=== PATIENT | male | born 1950 | race Asian ===

== ENCOUNTER 2016-06-30 05:17 | Inpatient (IN) | payer OTHER ==
--- NOTE | 2016-06-28 22:18 | PREOPHP ---
DATE OF ADMISSION: 06/30/2016 The patient to have surgery with Dr. Frank Duncan on 06/30/2016. REASON FOR CONSULTATION: Consultation requested by Dr. Frank Duncan for medical evaluation and clearance of a 66-year-old gentleman about to undergo surgery on his cervical spine. Thank you, Dr. Duncan, for allowing us to participate in the care of this patient. HISTORY OF PRESENT ILLNESS: Connor Rubalcava is a 66-year-old gentleman with problems with his neck and currently being admitted for correction of the above. PAST MEDICAL HISTORY: In terms of his prior medical history, his only surgery has been for a right inguinal hernia. Otherwise he has not had any hospitalizations nor has he had any medical or other surgical procedures and has had no broken bones. HE CLAIMS NOT TO BE ALLERGIC TO ANY MEDICATIONS. 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 Prednisone 5 mg b.i.d. or a total of 10 mg a day. 2. Os-Jake b.i.d. with vitamin D. 3. Protonix 40 mg a day. 4. Advair 2 puffs b.i.d. 5. Spiriva 18 mcg a day. 6. Qvar 80 mg 2 puffs b.i.d. 7. Gabapentin 600 mg t.i.d. ALLERGIES: HE IS NOT ALLERGIC TO ANY MEDICATIONS. He describes his health, despite all these issues, as being relatively good. SOCIAL HISTORY: Patient is , has 2 children and 1 grandchild. Quit smoking a while back, but did have 20 pack years in before he quit. Alcohol socially. Does drink coffee. 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 FAMILY HISTORY: Both parents are . Father of an [place] at age 62. Mother age 92 of old age. Four siblings are in good health. One has anemia. There is heart disease. No diabetes, cancer, hypertension, or stroke. REVIEW OF SYSTEMS: HEENT: Unremarkable. CARDIORESPIRATORY: Denies any chest pain, shortness of breath. GASTROINTESTINAL: No melena or hematemesis. GENITOURINARY: No urgency, frequency. MUSCULOSKELETAL: Positive for neck problems. NEUROPSYCHIATRIC: Unremarkable. GENERAL HEALTH: As above. PHYSICAL EXAMINATION: VITAL SIGNS: The patient's blood pressure was 134/68, pulse was 92 and regular , respirations 18, temperature 98.4. Height 5 feet 8 inches, weight 135 pounds. GENERAL: The patient was noted to be a well-developed, well-nourished male, alert and cooperative, in no apparent acute distress, oriented to time, place, and person. HEAD, EARS, EYES, NOSE, AND THROAT: Head was atraumatic. Eyes: Pupils were equal, reactive to light and accommodation. Fundi were benign. Tympanic membranes were unremarkable. Nose was negative. Mouth was unremarkable. Fair oral hygiene was present. NECK: Supple without any rigidity. Trachea was midline. Thyroid was within normal limits. Neck veins were flat. Carotid pulses were equal. No bruits were heard. BACK: Unremarkable. CHEST: Symmetrical. BREASTS AND AXILLARY: Did not reveal any masses. LUNGS: Reveal few scattered rhonchi, otherwise unremarkable. HEART: PMI was at the fifth intercostal space at the midclavicular line. Regular sinus rhythm was noted. No significant murmurs, rubs, or gallops being elicited. ABDOMEN: Soft, good bowel sounds were noted. No significant organomegaly, masses, or tenderness. Scars from prior surgery being noted. GENITALIA: Normal male external genitalia. RECTAL AND PROSTATIC: Per PCP, unremarkable. EXTREMITIES: Did not reveal clubbing, edema, or cyanosis. Peripheral pulses were physiologic; however, there was marked weakness in both lower extremities and the patient had definite gait and balance issues. SKIN: Moist and warm without any eruptions. No gross lymphadenopathy was noted. HEART: Revealed normal deep tendon reflexes, however, muscle weakness in lower extremities as well as the upper extremity, right more than left, with the patient's home agent being significantly weakened. IMPRESSION: 1. Spinal stenosis, cervical spine, with acute herniated disk as well as secondary neurologic deficits. 2. 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 3. Respiratory difficulty secondary to that, chronic and other autoimmune disorders. 4. Steroid dependence. 5. Asthmatic bronchitis secondary to eosinophilic pneumonia and autoimmune disease in general. DISCUSSION: Dr. Duncan: This patient currently is in need of relatively emergent cervical spine surgery. Hopefully, he is at his best in terms of his other medical issues at this particular point in time. He is steroid dependent and this will have to be taken into account with preoperative, intraoperative, and postoperative steroid medications in the patient who is adrenally suppressed at this particular point in time. The steroids are for his eosinophilic pneumonia. His obvious muscle weakness in a patient who was a dentist practicing pretty much up until 2 or 3 months ago, makes his issues quite impressive. In terms of his laboratory data, his electrolytes, glucose, BUN, creatinine, liver function tests are basically normal. Serum iron is somewhat low. TSH was normal. Hemoglobin A1c was normal. White count is markedly elevated secondary to chronic steroid use, white count of 23,000, low lymphocytes, predominantly granulocytes, compatible with steroid use. Normal sed rate. UA reveals trace protein, trace blood. PT, PTT were normal. Bladder residual in this patient was 52 mL, which is quite acceptable. His EKG revealed some nonspecific ST-T wave changes and mild tachycardia and heart rate of 88 beats per minute. His chest x-ray revealed chronic infiltrates scattered throughout, compatible with his diagnosis of eosinophilic pneumonitis, chronic., oxygen saturation 96%.at rest. Again, at this point, I see no contraindication to this patient undergoing current proposed surgery. He will need to be monitored closely postoperatively and may need postoperative pulmonary consultation if his respiratory status deteriorates. Thank you again, Dr. Duncan, for allowing us to participate in the care of this patient. Dictated By: ANTONIA ANDRADE MD SS/CHELLE Conf#: [id number] DID#: [id number] CC: FRANK DUNCAN MD;*EndCC* MTDD
[2016-06-29 10:00] VITALS: BMI 21.8
[2016-06-30] VITALS (28 sets, daily range): BP systolic 92–144; BP diastolic 53–75; PULSE 91–114; RESP 10–21; Ht 174 cm; Wt 58.0 kg
[~2016-06-30] VITALS: Ht 174 cm; Wt 58.0 kg
[~2016-06-30 05:17] MED LIST: CEFAZOLIN 2 GM/50 ML (PMX) 50 ML IVPB ONE; LACTATED RINGER'S 1,000 ML IV* SCH
--- NOTE | 2016-06-30 06:42 | HPN ---
Date/Time of Note Date/Time of Note DATE: 06/30/16 TIME: 06:41 Interval H&P Admission Note Pt. seen H&P reviewed: No system changes RACHAEL DUNCAN MD Jun 30, 2016 06:42
[2016-06-30] MEDS ORDERED: MIDAZOLAM 1 MG/ML 2 ML INJ ONE (07:03)
[2016-06-30] MEDS ORDERED: PROPOFOL 20 ML ONE ×3 (07:03→11:31)
[2016-06-30] MEDS ORDERED: LIDOCAINE 2% (SDV) 5 ML INJ ONE (07:03)
[2016-06-30] MEDS ORDERED: SUCCINYLCHOLINE CHLORIDE 100 MG/5 ML SYG IV ONE (07:03)
[2016-06-30] MEDS ORDERED: THROMBIN 5000 UNIT VIAL ONE (07:15)
[2016-06-30] MEDS ORDERED: POLYMYXIN/BACITRACIN 1L IRRIG ONE ×2 (07:15→09:48)
[2016-06-30] MEDS ORDERED: BUPIVACAINE 0.25% (MPF) 10 ML 10 ML VIAL ONE (07:15)
[2016-06-30] MEDS ORDERED: GELATIN SIZE 100 SPONGE ONE (07:15)
[2016-06-30] MEDS ORDERED: ROCURONIUM 50 MG INJ ONE (07:55)
[2016-06-30] MEDS ORDERED: PROPOFOL 100 ML ONE ×2 (07:57→08:28)
[2016-06-30] MEDS ORDERED: HYDROCORTISONE 100 MG INJ ONE ×2 (08:06→13:54)
[2016-06-30] MEDS ORDERED: ONDANSETRON 4 MG INJ ONE (08:18)
[2016-06-30] MEDS ORDERED: FAMOTIDINE 20 MG INJ ONE (08:18)
[2016-06-30] MEDS ORDERED: GLYCOPYRROLATE 0.4 MG INJ ONE (08:28)
[2016-06-30] MEDS ORDERED: hydrALAzine 20 MG INJ ONE (08:28)
[2016-06-30] MEDS ORDERED: NEOSTIGMINE 3 MG/3 ML SYRINGE ONE (08:28)
[2016-06-30] MEDS ORDERED: HYDROmorphONE 2 MG/ML SYG ONE (10:20)
[2016-06-30] MEDS ORDERED: HYDROmorphONE (0.2 MG/ML) 10ML SYG IV PRN ×3 (10:30)
[2016-06-30] MEDS ORDERED: ONDANSETRON 4 MG INJ IV PRN ×2 (10:30→12:30)
[2016-06-30] MEDS ORDERED: MEPERIDINE 25 MG INJ IV PRN (10:30)
[2016-06-30] MEDS ORDERED: PROCHLORPERAZINE 10 MG INJ IV PRN (10:30)
[2016-06-30] MEDS ORDERED: FENTAnyl 50 MCG/ML VIAL IV PRN ×3 (10:30)
[2016-06-30] MEDS ORDERED: DIPHENHYDRAMINE 50 MG INJ IV PRN (10:30)
[2016-06-30] MEDS ORDERED: CEFAZOLIN 1 GM INJ ONE (11:39)
--- NOTE | 2016-06-30 12:20 | OPR ---
Date/Time of Note Date/Time of Note DATE: 06/30/16 TIME: 12:14 Operative Report Preoperative Diagnosis Herniated cervical disc C5-6 and C6-7 with cervical myelopathy Postoperative Diagnosis Same Operation Performed Anterior cervical microdiscectomy C5-6 Anterior cervical microdiscectomy C6-7 Anterior cervical interbody arthrodesis C5-6 Anterior cervical interbody arthrodesis C6-7 Segmental spinal fixation from C5-C7 using Alphatec plate and screws Right iliac bone graft Cosmetic wound closures (5 cm left cervical 3 cm right iliac) AP and lateral intraoperative radiographs (3 sets) Intraoperative nerve monitoring (3.5 hours) Surgeon: RACHAEL DUNCAN MD captain assistant: NATALEE BROWN Anesthesia: general Anesthesiologist: ISAAC BROWNLEE MD Estimated Blood Loss: 50 - 100 ml's Specimens Disc material C5-6 and C6-7 Tubes/Drains 2 medium Hemovac drains employed in the cervical wound one medium Hemovac drain employed in the right iliac wound Complications: None Pt Condition Post Procedure: stable Operative\Procedure Findings At surgery, disc herniations at C5-6 and C6-7 were confirmed with cord compression and severe disc space narrowing RACHAEL DUNCAN MD Jun 30, 2016 12:19
--- NOTE | 2016-06-30 12:28 | RADRPT ---
PROCEDURE: Intraoperative XR. CLINICAL INDICATION: Intraoperative radiograph during cervical spine surgery. TECHNIQUE: 8 spot intraoperative lateral cervical x-ray image was provided. The images were revie wed on a high-resolution PACS workstation. COMPARISON: None available FINDINGS: Spot intraoperative lateral cervical views were provided during cervical spine fusion. The images d emonstrate initial metallic probes at the C5-6 and C6-7 levels. There is subsequent placement of an terior vertebral body screws in the C5, C6 and C7 vertebral bodies with associated anterior spinal f usion plate. The hardware appears intact on the final image. The alignment of the cervical spine i s within normal limits. The remaining vertebral body heights are maintained. There is an endotrach eal tube in place. Limited soft tissue detail due to lateral intraoperative technique. IMPRESSION: 1. Spot intraoperative lateral cervical view during anterior cervical discectomy and fusion were pr ovided. 2. Please see operative report of the same day for further information. RPTAT: DD .Kingsley Angulo MD, MD Date Time Electronically viewed and signed by .Kingsley Angulo MD, on 06/30/2016 12:28 .S/
[2016-06-30] MEDS ORDERED: HYDROmorphONE 0.2 MG/ML PCA IV SCH (12:30)
[2016-06-30] MEDS ORDERED: ACETAMINOPHEN 325 MG TAB PO PRN (12:30)
[2016-06-30] MEDS ORDERED: TRIMETHOBENZAMIDE 100 MG/ML VIAL IM PRN (12:30)
[2016-06-30] MEDS ORDERED: PROCHLORPERAZINE 10 MG TAB PO PRN (12:30)
[2016-06-30] MEDS ORDERED: HYDROCODONE/APAP (5/325) TAB PO PRN ×2 (12:30)
[2016-06-30] MEDS ORDERED: AL HYDROX/MG HYDROX/SIMETH 30 ML CUP PO PRN (12:30)
[2016-06-30] MEDS ORDERED: DIAZEPAM 5 MG TAB PO PRN (12:30)
[2016-06-30] MEDS ORDERED: NALOXONE (0.4 MG/ML) INJ IV PRN (12:30)
[2016-06-30] MEDS ORDERED: BETHANECHOL 25 MG TAB PO PRN (12:30)
[2016-06-30] MEDS ORDERED: ZOLPIDEM 5 MG TAB PO PRN (12:30)
[2016-06-30] MEDS ORDERED: DIPHENHYDRAMINE 50 MG CAP PO PRN (12:30)
[2016-06-30] MEDS ORDERED: DIAZEPAM 5 MG/ML SYG IM PRN (12:30)
[2016-06-30] MEDS ORDERED: CEPASTAT LOZENGE MT PRN (12:30)
[2016-06-30] MEDS ORDERED: NACL 0.9% 3 ML SYG IV SCH (12:30)
--- NOTE | 2016-06-30 13:09 | OPR ---
DATE OF OPERATION: 06/30/2016 PREOPERATIVE DIAGNOSES: 1. Herniated disk. C5 to C6 with cervical myelopathy. 2. Herniated disk, C6 to C7 with cervical myelopathy. POSTOPERATIVE DIAGNOSES: 1. Herniated disk. C5 to C6 with cervical myelopathy. 2. Herniated disk, C6 to C7 with cervical myelopathy. OPERATION PERFORMED: 1. Anterior cervical microdiskectomy at C5 to C6. 2. Anterior cervical microdiskectomy at C6 to C7. 3. Anterior cervical interbody arthrodesis C5 to C6. 4. Anterior cervical interbody arthrodesis at C6 to C7. 5. Segmental spinal fixation from C5 to C7 using a 43 mm Alphatec Trestle plate and screws. 6. Right iliac bone graft. 7. Cosmetic wound closures (5 cm left cervical, 3 cm right iliac). 8. AP and lateral cervical radiographs (3 sets). 9. Intraoperative nerve monitoring (3-1/2 hours) SURGEON: Frank Venegas MD KLYSTROM TUBE TESTER: KAIDEN Germain ANESTHESIA: General endotracheal. ANESTHESIOLOGIST: Dena Javier MD ESTIMATED BLOOD LOSS: 50 mL, none replaced. DRAINS: Two medium Hemovac drains employed in the cervical wound, one medium Hemovac drain employed in the right iliac wound. COMPLICATIONS: None. PERTINENT HISTORY AND PHYSICAL: This is a 65-year-old male with progressive weakness in his arms an d legs, which began without antecedent trauma or injury. He has undergone a number of diagnostic st udies including an MRI of the cervical spine which demonstrated disk herniations at C5 to C6 and C6 to C7 with cord compression. Treatment options were discussed with the patient, who elected to proc eed with surgery. OPERATIVE FINDINGS AT SURGERY: Herniations at C5 to C6 and C6 to C7 which indented the ventral surf jeimy of the cord were confirmed. Baseline intraoperative nerve monitoring revealed a decrease in the C5 potential on the right of 30%, the C6 potential on the right of 40% and the C7 potentials bilate rally of 40%. These all returned to normal at the completion of surgery. OPERATIVE PROCEDURE: With the patient in supine position after satisfactory induction of general en dotracheal anesthesia by Dr. Javier, the patient was positioned with a 5-pound sandbag under the right buttock and a 3 liter IV bottle under the shoulders. The anterior cervical spine and right iliac c rest were prepped and draped in usual sterile fashion. Athrombic pumps were applied to the legs bel ow the knees to prevent venous stasis during and after the procedure. An indwelling Mac catheter was also placed preoperatively to facilitate bladder drainage during and after the procedure. A 5 cm incision was made on the anterior aspect of cervical spine in line with the left iliac spine in line with the left clavicle, approximately 1-1/2 fingerbreadths above the left clavicle through s kin and subcutaneous tissue to the platysma fascia. Superficial retractors were placed and hemostas is secured with electrocautery. Throughout the procedure, copious amounts of antibacterial irrigati ng solution were used to periodically irrigate the wound. The platysma fascia was divided transvers esther and the interval between the sternocleidomastoid and strap muscles was entered with blunt dissec tion. Trachea and esophagus were then mobilized to the right and protected with a Cloward hand-held retractor. The peanut elevator was then used to clear the soft tissues over the anterior longitudi nal ligament and two 20 gauge spinal needles were angulated to prevent overpenetration were then carmine gómez in what was felt to be the C5 to C6 and C6 to C7 disk spaces. This was confirmed on the first l ateral x-ray. The longissimus coli muscles were elevated bilaterally, and the Cloward self-retainin g retractor was then placed into the cervical spine for visualization purposes. The operating micro scope was moved into place. A 15 blade knife used to cut a rectangular window in the annulus and an terior longitudinal ligament at C6 to C7, and multiple degenerative disk fragments were harvested wi th pituitary rongeurs and sent to the laboratory for pathologic study. Additional fragments were arias rvested using Aurelia curettes. The Cloward interbody physical therapy aide was then placed into the disk space a nd the additional disk material removed from the posterior aspect of the disk space. The posterior longitudinal ligament was then taken down in the midline and then over to both foramina using 1 mm K errison punch. This decompressed the exiting C7 nerve roots and the spinal cord at this level. A h igh speed oneforty hernesto bur was then used to abrade the cartilaginous endplates down to subchondra l bleeding bone. Attention then turned to the C5 to C6 disk space where the identical procedure was carried out. The posterior longitudinal ligament was taken down in the midline as well with a 1 mm Kerrison punch an d over to the foramina bilaterally, decompressing the exiting C6 nerves and the spinal cord at that level. The [place] hernesto bur was also used at this level to remove the cartilaginous endplates at C5 to C6. The attention was then turned to the right iliac crest where a 3 cm incision was carried out 1 inch proximal and 1 inch lateral to the anterior superior iliac spine through skin and subcutaneous tissu e to the deep fascia once the skin was infiltrated with 0.25% Marcaine without epinephrine for posto perative analgesia. The skin incision was then retracted over to the level of the iliac crest where a fascial incision was made directly over the iliac crest. A subperiosteal dissection was then car ried out on the inner and outer table of the right ilium, and a tricortical iliac bone graft was the n harvested using a [employer] reciprocating power saw measuring approximately 3/4 inch in mary gth and 1 cm deep. The donor bone edges were waxed for hemostasis after thorough inner antibacteria l irrigating solution. The wound was closed over a deep medium Hemovac drain using 0 Vicryl sutures on the fascia, 2-0 Vicryl sutures in subcu tissue, and a 4-0 Vicryl subcuticular cosmetic closing s uture on the skin. The 3/4 inch piece of iliac crest was then divided into 2 and carefully trimmed to approximately 7 mm in height and 8 mm in depth. Each plug was placed into the C5 to C6 and C6 to C7 disk spaces under direct vision. The Cloward interbody distractors were withdrawn, and final po sitioning of the bone plug was made with the Cloward tamps. A 43 mm Trestle plate was then selected and temporarily transfixed to the anterior aspect of the cervical spine using the supplied darts an d AP and lateral radiographs were taken until the plate and bone plugs were in appropriate position. The final self-drilling, self-tapping screws were then used to secure the cervical plate to the C5 , C6 and C7 vertebral bodies. Final AP and lateral x-ray showed satisfactory positioning of the bon e plugs and the hardware. The wound was then again finally irrigated with antibacterial irrigating solution and closed over 2 medium Hemovac drains, one below the fascia and one above the fascia usin g 0 Vicryl sutures on the interval between the sternocleidomastoid and strap muscles, 0 Vicryl sutur es on the platysma fascia, 2-0 Vicryl sutures in subcu tissue, and a 4-0 Vicryl subcuticular cosmeti c closing suture on the skin. Dermabond and sterile dressings were applied to both incisions. The patient's neck was then immobilized in an [place] collar prior to extubation by Dr. Javier. Having alda rated the procedure well, he was transported to the recovery room in satisfactory condition. At the conclusion of procedure, the sponge, instrument, and needle counts were all correct. NEED FOR SHELLFISH MANAGER: During this spinal surgical procedure, my assistant credit manager was used to retrac t and protect the spinal nerves and dural sac. My assistant credit manager also employed the suction catheters to e vacuate blood from the surgical field to improve visualization of the neural structures. The assista nt was medically necessary to facilitate the completion of the surgery in a safe and expeditious man ner. [facility] [place] regulations, as well as hospital bylaws, preclude the use of non-licensed [facility] care personnel such as operating room technicians, to perform these functions. Throughout the procedure, neural monitoring was carried out by [employer] including EMG, SSEP and MEP monitoring of the C4, C5, C6, C7 nerve roots and spinal cord potentials. These were interpreted by a neurologist employed by [employer]. Dictated By: FRANK VENEGAS MD TM/NTS Conf#: [id number] DID#: [id number] CC: ANTONIA ANDRADE MD;*EndCC*
[2016-06-30] MEDS: HYDROCORTISONE 100 MG INJ IV SCH ×2 (14:19→21:55)
--- NOTE | 2016-06-30 14:26 | CONS ---
DATE OF ADMISSION: 06/30/2016 DATE OF CONSULTATION: 06/30/2016 The patient had surgery with Dr. Frank Venegas on 06/30/2016. HISTORY OF PRESENT ILLNESS: Patient seen in the recovery room, still quite groggy but does respond to stimuli, exam reveals the following. PHYSICAL EXAMINATION: VITAL SIGNS: The patient's blood pressure was 134/68, respirations are 12, pulse was 108, temperatu re was 98.4, O2 saturation 100% on nasal cannula. HEENT: Unremarkable. LUNGS: Relatively clear. HEART: Reveals tachycardia. ABDOMEN: Unremarkable. IMPRESSION: 1. Status post cervical spine surgery for acute herniated disk with secondary neurologic deficits t o his eosinophilic pneumonia. 2. Chronic shortness of breath and steroid dependency. 3. History of gastroesophageal reflux disease. DISCUSSION: Plan is to reorder his medicines, will temporarily put him on Solu-Cortef for 3 doses x 8 hours and q.12 hours and then put him back on the higher dose of prednisone which he has been on. Also his other medications are his inhalers will be renewed. His Gabapentin will also be ordered. Other outpatient medicines will also be renewed. PLAN: Follow him with you and observe him closely in terms of his pulmonary condition. Thank you again, Dr. Venegas, for allowing us to participate in care of this patient. Dictated By: ANTONIA ANDRADE MD SS/CHELLE Conf#: [id number] DID#: [id number]
[2016-06-30] MEDS: DEXTROSE 5%-0.45% NACL 1,000 ML IV SCH (16:36)
[2016-06-30] MEDS: CEFAZOLIN 1 GM/50 ML (PMX) 50 ML IVPB SCH ×2 (17:28→23:38)
[2016-06-30] MEDS: CALCIUM/VITAMIN D (500/200) TAB PO SCH (21:10)
[2016-06-30] MEDS: GABAPENTIN 300 MG CAP PO SCH (21:10)
[2016-06-30] MEDS: RANITIDINE 150 MG TAB PO SCH (21:10)
[2016-06-30] MEDS: SALMETEROL/FLUTICASONE 250/50 INHA INH SCH (21:55)
[2016-07-01] MEDS: DEXTROSE 5%-0.45% NACL 1,000 ML IV SCH (03:58)
[2016-07-01 05:18] LABS: HEMATOCRIT 34.2 % (42.0-52.0); HEMOGLOBIN 11.5 g/dl (14.0-18.0)
[2016-07-01 05:26] LABS: POTASSIUM 3.6 mmol/L (3.5-5.1)
[2016-07-01 05:28] LABS: CREATININE 0.52 mg/dl (0.61-1.24)
[2016-07-01 05:29] LABS: CALCIUM 8.1 mg/dl (8.4-10.2)
[2016-07-01 05:34] VITALS: BP 126/67; PULSE 89; RESP 18
[2016-07-01] MEDS: HYDROCORTISONE 100 MG INJ IV SCH ×3 (05:43→21:58)
[2016-07-01] MEDS: CEFAZOLIN 1 GM/50 ML (PMX) 50 ML IVPB SCH ×2 (05:43→12:50)
[2016-07-01] MEDS: PANTOPRAZOLE (EC) 40 MG TAB PO SCH (06:00)
--- NOTE | 2016-07-01 07:11 | PN ---
Date/Time of Note Date/Time of Note DATE: 07/01/16 TIME: 07:09 Assessment/Plan Lines/Catheters IV Catheter Type (from Nrs): Peripheral IV Mac in Place (from Nrs): Yes Subjective 24 Hr Interval Summary The patient is postop day #1 following an anterior cervical microdiscectomy and interbody arthrodesis at C5-6 and C6-7. He is resting comfortably in bed. His Buckner collar is in place. His morning lab work is normal. Neurovascular structures are intact distally. He has a Mac catheter in place. He will be seen by physical therapy 4 times today for walker ambulation training. His Hemovacs have minimal output and are being removed this morning. His wounds are clean and dry and are redressed. He will be discharged home when cleared by physical therapy either later today or tomorrow. Exam/Review of Systems Vital Signs Vitals Vital Signs Date Time Temp Pulse Resp B/P Pulse Ox O2 Delivery O2 Flow Rate FiO2 07/01/16 05:34 98.2 89 18 126/67 98 Room Air 06/30/16 13:32 5.0 Intake and Output 06/30/16 06/30/16 07/01/16 15:00 23:00 07:00 Intake Total 4000 ml 220 ml 1150 ml Output Total 252 ml 910 ml 25 ml Balance 3748 ml -690 ml 1125 ml Results Result Diagram: 07/01/16 0425 07/01/16 0425 RACHAEL DUNCAN MD Jul 01, 2016 07:11
[2016-07-01 07:54] VITALS: BP 133/78; RESP 20
[2016-07-01] MEDS ORDERED: BETHANECHOL 25 MG TAB PO PRN (08:00)
[2016-07-01] MEDS ORDERED: TIOTROPIUM 18 MCG CAPSULE INHA DEV INH SCH (09:00)
[2016-07-01] MEDS: RANITIDINE 150 MG TAB PO SCH ×2 (09:31→20:45)
[2016-07-01] MEDS: CALCIUM/VITAMIN D (500/200) TAB PO SCH ×2 (09:31→20:45)
[2016-07-01] MEDS: GABAPENTIN 300 MG CAP PO SCH ×3 (09:31→20:45)
[2016-07-01] MEDS: FERROUS SULFATE (EC) 325 MG TAB PO SCH ×3 (09:31→20:45)
[2016-07-01] MEDS: DOCUSATE SODIUM 100 MG CAP PO SCH ×2 (09:31→20:45)
[2016-07-01] MEDS: ASCORBIC ACID 500 MG TAB PO SCH ×2 (09:31→20:45)
--- NOTE | 2016-07-01 10:25 | CONS ---
DATE OF ADMISSION: 06/30/2016 DATE OF CONSULTATION: 07/01/2016 POSTOPERATIVE CONSULTATION FOLLOWUP The patient was seen at approximately 7:40 a.m. on 07/01/2016. HISTORY OF PRESENT ILLNESS: The patient is alert, had a difficult night; however, most concerning t o him is that he does not seem to notice any difference in terms of his hands and legs, but other th an that has been relatively stable. PHYSICAL EXAMINATION: VITAL SIGNS: Revealed the following: Blood pressure 132/70, pulse 86, respirations 18, temperature 98.2, O2 saturation 98% on room air. HEENT: Unremarkable, other than the neck brace. LUNGS: Clear. HEART: Reveals a regular rhythm. EXTREMITIES: Rest of exam, hand strength not much different at this point than before surgery. IMPRESSION: 1. Status post cervical spine surgery. 2. Chronic shortness of breath secondary to eosinophilic pneumonia. 3. Gastroesophageal reflux disease. DISCUSSION: The patient's laboratory this morning reveals a normal hemoglobin. The patient's H is 11.5 and 34.2, slightly lower than what it had been before. Chemistry panel; however, is well withi n normal limits. Random glucose was 126. The patient is stable medically, currently on Solu-Cortef . Instructions given that if he goes home today, tomorrow he will start 20 mg of prednisone at home . If he does stay, then we will start his 20 mg of prednisone starting tomorrow after his q.8h. of Solu-Cortef is finished. CONDITION: Medically stable. Thank you again, Dr. Venegas, for allowing us to participate in the care of this patient. Dictated By: ANTONIA SAINI/CHELLE Conf#: [id number] DID#: [id number]
[2016-07-01] MEDS: SALMETEROL/FLUTICASONE 250/50 INHA INH SCH ×2 (11:13→20:45)
[2016-07-01 14:12] LABS: ADD UMIC YES; URINE BILIRUBIN (Dip) NEGATIVE (NEGATIVE); URINE BLOOD (Dip) 1+ (NEGATIVE); URINE COLOR LT. YELLOW (YELLOW); URINE GLUCOSE (Dip) NEGATIVE (NEGATIVE); URINE KETONES (Dip) NEGATIVE (NEGATIVE); URINE LEUKOCYTE ESTERASE (Dip) TRACE (NEGATIVE); URINE NITRITE (Dip) NEGATIVE (NEGATIVE); URINE TOTAL PROTEIN (Dip) NEGATIVE (NEGATIVE); URINE UROBILINOGEN (Dip) 0.2 E.U./dL (0.1-1.0)
[2016-07-01 19:00] VITALS: BP 168/89; RESP 18
[2016-07-01 23:00] VITALS: BP 135/68
[2016-07-02] MEDS: HYDROCORTISONE 100 MG INJ IV SCH (05:51)
[2016-07-02] MEDS: PANTOPRAZOLE (EC) 40 MG TAB PO SCH (05:51)
--- NOTE | 2016-07-02 07:06 | PN ---
Date/Time of Note Date/Time of Note DATE: 07/02/16 TIME: 07:05 Assessment/Plan Lines/Catheters IV Catheter Type (from Nrs): Saline Lock Mac in Place (from Nrs): Yes Subjective 24 Hr Interval Summary The patient is postop day #2 following a 2 level anterior cervical discectomy and fusion at C5-6 and C6-7. He is resting comfortably in bed. His collar is in place. He is doing well with physical therapy. I anticipate he can be discharged home today. His examination reveals neurovascular structures to be intact distally. He was given strict discharge precautions and instructions. We will follow him up in the office in 1-2 weeks. Exam/Review of Systems Vital Signs Vitals Vital Signs Date Time Temp Pulse Resp B/P Pulse Ox O2 Delivery O2 Flow Rate FiO2 07/01/16 23:00 135/68 07/01/16 19:00 97.8 88 18 97 07/01/16 05:34 Room Air 06/30/16 13:32 5.0 Intake and Output 07/01/16 07/01/16 07/02/16 15:00 23:00 07:00 Intake Total 100 ml 1640 ml 700 ml Output Total 1000 ml 1400 ml Balance 100 ml 640 ml -700 ml Results Result Diagram: 07/01/16 0425 07/01/16 0425 RACHAEL DUNCAN MD Jul 02, 2016 07:06
[2016-07-02 07:59] VITALS: BP 148/85; RESP 16
[2016-07-02] MEDS: FERROUS SULFATE (EC) 325 MG TAB PO SCH ×2 (08:50→13:06)
[2016-07-02] MEDS: ASCORBIC ACID 500 MG TAB PO SCH (08:51)
[2016-07-02] MEDS: RANITIDINE 150 MG TAB PO SCH (08:51)
[2016-07-02] MEDS: DOCUSATE SODIUM 100 MG CAP PO SCH (08:51)
[2016-07-02] MEDS: GABAPENTIN 300 MG CAP PO SCH ×2 (08:51→13:06)
[2016-07-02] MEDS: CALCIUM/VITAMIN D (500/200) TAB PO SCH (08:51)
[2016-07-02] MEDS: SALMETEROL/FLUTICASONE 250/50 INHA INH SCH (08:52)
--- NOTE | 2016-07-02 09:44 | CONS ---
DATE OF ADMISSION: 06/30/2016 DATE OF CONSULTATION: 07/02/2016 TYPE OF CONSULTATION: Postop consultation followup. Patient was seen approximately 7:30 a.m. HISTORY OF PRESENT ILLNESS: Patient is alert. Says he is possibly slightly better and is planning on going home today. VITAL SIGNS: Revealed the following: The patient's blood pressure 148/85, pulse 89, respirations 16 , temperature 98.4, O2 saturation 98%. NECK: Brace in place. LUNGS: Clear to percussion and auscultation. HEART: Reveals a regular rhythm. NEUROLOGIC: Unremarkable. IMPRESSION: 1. Status post cervical spine surgery. 2. Eosinophilic pneumonia, chronic. 3. Gastroesophageal reflux disease. 4. Steroid dependent. DISCUSSION: The patient's Solu-Cortef has been discontinued. Instructions on prednisone followup arias s been done. Management per Dr. Venegas. The patient medically stable at this particular point in time. Thank you again, Dr. Venegas, for allowing us to participate in the care of this patient. Dictated By: ANTONIA ANDRADE MD SS/NTS Conf#: [id number] DID#: [id number]
--- NOTE | 2016-07-05 07:55 | DS ---
Date/Time of Note Date/Time of Note DATE: 07/05/16 TIME: 07:54 Discharge Summary Admission/Discharge Info Admit Date/Time Jun 30, 2016 at 05:17 Discharge Date/Time Jul 02, 2016 at 17:00 Final Diagnosis 1. Herniated disk. C5 to C6 with cervical myelopathy. 2. Herniated disk, C6 to C7 with cervical myelopathy. Patient Condition: Fair Hospital Course Pt did well post-op. His was tolerating activity well prior to d/c. Diet was advanced as tolerated. He was discharged to home in good condition on POD #2 Home Meds No Active Prescriptions or Reported Meds Follow-up Plan Follow up with in 2 weeks. YVONNE ADAMS Jul 05, 2016 07:55
== END 2016-07-02 17:00 | disposition home or self-care (01) | DRG 472 ==
LOC: REC 05:17 → EDBD 07:00 → MS1 16:30
PROVIDERS: ADMIT Orthopaedic Surgery; ATTEND Orthopaedic Surgery
PROC: 0QB20ZZ Excision of Right Pelvic Bone, Open Approach (ICD-10-PCS; 2016-06-30)
PROC: 0RB30ZZ Excision of Cervical Vertebral Disc, Open Approach (ICD-10-PCS; 2016-06-30)
PROC: 0RG2070 Fusion of 2 or more Cervical Vertebral Joints with Autologous Tissue Substitute, Anterior Approach, Anterior Column, Open Approach (ICD-10-PCS; principal; 2016-06-30 07:00)
DX: M50.022 Cervical disc disorder at C5-C6 level with myelopathy (principal); J82 Pulmonary eosinophilia, not elsewhere classified; K21.9 Gastro-esophageal reflux disease without esophagitis; Z79.52 Long term (current) use of systemic steroids; Z87.891 Personal history of nicotine dependence
CPT/HCPCS: 72052; 80048; 81001; 81003; 85014; 85018; 86850; 86900; 86901; 86920; 97116; 97162; 97530; J0330; J0360; J0690; J1170; J1720; J2250; J2405; J2710; J3010; J7042; L1932; L2820

== ENCOUNTER 2017-01-17 07:03 | Inpatient (IN) | payer MEDICARE, OTHER ==
[~2017-01-17] VITALS: Ht 172.7 cm; Wt 63.0 kg
[2017-01-17] VITALS (32 sets, daily range): BP systolic 134–158; BP diastolic 68–83; PULSE 75–96; RESP 12–31; Ht 172.7 cm; Wt 63.0 kg
[~2017-01-17 07:03] MED LIST changes: +CALC500T11 PO; -CEFAZOLIN 2 GM/50 ML (PMX) 50 ML IVPB ONE; +CEFAZOLIN 2 GM/50 ML (PMX) 50 ML IVPB SCH; +FLUT12HF4 IH; +PRED10TA PO; +QVAR; +TIOT18CA INHALATION
[2017-01-17] MEDS ORDERED: LIDOCAINE 2% (SDV) 5 ML INJ ONE (09:13)
[2017-01-17] MEDS ORDERED: GLYCOPYRROLATE 0.4 MG INJ ONE (09:13)
[2017-01-17] MEDS ORDERED: NEOSTIGMINE 3 MG/3 ML SYRINGE ONE ×2 (09:13→12:09)
[2017-01-17] MEDS ORDERED: ROCURONIUM 50 MG INJ ONE ×2 (09:13→12:19)
[2017-01-17] MEDS ORDERED: SUCCINYLCHOLINE CHLORIDE 100 MG/5 ML SYG IV ONE (09:13)
[2017-01-17] MEDS ORDERED: MEPERIDINE 100 MG INJ ONE (09:13)
[2017-01-17] MEDS ORDERED: PROPOFOL 20 ML ONE (09:13)
[2017-01-17] MEDS ORDERED: THROMBIN 5000 UNIT VIAL ONE (09:25)
[2017-01-17] MEDS ORDERED: POLYMYXIN/BACITRACIN 1L IRRIG ONE (09:25)
[2017-01-17] MEDS ORDERED: BUPIVACAINE 0.25% (MPF) 10 ML 10 ML VIAL ONE (09:25)
[2017-01-17] MEDS ORDERED: GELATIN SIZE 100 SPONGE ONE (09:25)
--- NOTE | 2017-01-17 09:39 | HPN ---
Date/Time of Note Date/Time of Note DATE: 01/17/17 TIME: 09:39 Interval H&P Admission Note Pt. seen H&P reviewed: No system changes RACHAEL DUNCAN MD Jan 17, 2017 09:39
[2017-01-17] MEDS ORDERED: HYDROCORTISONE 100 MG INJ ONE (10:34)
--- NOTE | 2017-01-17 10:58 | RADRPT ---
PROCEDURE: XR Lumbar Spine one view. CLINICAL INDICATION: Low back pain. Intraoperative. TECHNIQUE: Prone portable cross-table lateral. COMPARISON: Prior study done earlier the same day. FINDINGS: For the purposes of this report, the last apparent true disc level is considered to be L5-S1. Based on this, the posterior surgical instruments are overlying the spinous processes of L3, L4, and L5. IMPRESSION: 1. Intraoperative imaging as described above. RPTAT: QQ .Nelson Hooker MD, MD Date Time Electronically viewed and signed by .Nelson Hooker MD, MD on 01/17/2017 10:58 .R/
--- NOTE | 2017-01-17 11:03 | RADRPT ---
PROCEDURE: XR Lumbar Spine one view. CLINICAL INDICATION: Low back pain. Intraoperative. TECHNIQUE: Prone portable cross-table lateral. COMPARISON: No prior studies are available for comparison. FINDINGS: For the purposes of this report, the last apparent true disc level is considered to be L5-S1. Based on this, the posterior needle markers are present overlying the L3 vertebral body and L5 spinous pr ocess. IMPRESSION: 1. Intraoperative imaging as described above. RPTAT: QQ .Nelson Hooker MD, MD Date Time Electronically viewed and signed by .Nelson Hooker MD, MD on 01/17/2017 11:03 .R/
[2017-01-17] MEDS ORDERED: SUGAMMADEX SODIUM 200 MG/2 ML VIAL IV ONE (11:45)
[2017-01-17] MEDS: DEXTROSE 5%-0.45% NACL 1,000 ML IV SCH ×2 (12:50→21:55)
[2017-01-17] MEDS: HYDROmorphONE (0.2 MG/ML) 10ML SYG IV PRN ×2 (12:54→13:31)
--- NOTE | 2017-01-17 12:58 | SIPON ---
Date/Time of Note Date/Time of Note DATE: 01/17/17 TIME: 12:54 Operative Report Preoperative Diagnosis Lumbar spinal stenosis L3-L4 and L5 Postoperative Diagnosis Same Operation/Procedure Performed Central decompressive laminectomy at L3 Central decompressive laminectomy at L4 Central decompressive laminectomy at L5 Medial facetectomy and foraminotomy L3-4 bilaterally Medial facetectomy and foraminotomy L4-5 bilaterally Medial facetectomy and foraminotomy L5-S1 bilaterally Baxano transforaminal root decompression L5 on the left Cosmetic wound closure (10 cm) Lateral localizing lumbar radiographs (2) Intraoperative nerve monitoring (90 minutes) Surgeon see signature line registered dental assistant rda Dayanara Santoro PA-C Anesthesia: general Estimated blood loss: 50 - 100 ml's Transfusion Required none Specimen Spinous processes of L3-L4 and L5 Grafts/Implants none Complications none RACHAEL DUNCAN MD Jan 17, 2017 12:58
[2017-01-17] MEDS ORDERED: FENTAnyl 50 MCG/ML VIAL IV PRN ×3 (13:00)
[2017-01-17] MEDS ORDERED: NACL 0.9% 3 ML SYG IV SCH (13:00)
[2017-01-17] MEDS ORDERED: DIAZEPAM 5 MG/ML SYG IM PRN (13:00)
[2017-01-17] MEDS ORDERED: DIPHENHYDRAMINE 50 MG CAP PO PRN (13:00)
[2017-01-17] MEDS ORDERED: HYDROmorphONE (0.2 MG/ML) 10ML SYG IV PRN ×2 (13:00)
[2017-01-17] MEDS ORDERED: ZOLPIDEM 5 MG TAB PO PRN (13:00)
[2017-01-17] MEDS ORDERED: DIPHENHYDRAMINE 50 MG INJ IV PRN (13:00)
[2017-01-17] MEDS ORDERED: METOCLOPRAMIDE 10 MG INJ IV PRN (13:00)
[2017-01-17] MEDS ORDERED: OXYCODONE/ACETAMINOPHEN (5/325) TAB PO PRN ×2 (13:00)
[2017-01-17] MEDS ORDERED: NALOXONE (0.4 MG/ML) INJ IV PRN (13:00)
[2017-01-17] MEDS ORDERED: HYDROmorphONE 0.2 MG/ML PCA IV SCH (13:00)
[2017-01-17] MEDS ORDERED: LABETALOL HCL 20MG INJ IV PRN (13:00)
[2017-01-17] MEDS ORDERED: HYDROCODONE/APAP (5/325) TAB PO PRN (13:00)
[2017-01-17] MEDS ORDERED: ONDANSETRON 4 MG INJ IV PRN ×2 (13:00)
[2017-01-17] MEDS ORDERED: CEPASTAT LOZENGE MT PRN (13:00)
[2017-01-17] MEDS ORDERED: hydrALAzine 20 MG INJ IV PRN (13:00)
[2017-01-17] MEDS ORDERED: DIAZEPAM 5 MG TAB PO PRN (13:00)
[2017-01-17] MEDS ORDERED: BETHANECHOL 25 MG TAB PO PRN (13:00)
[2017-01-17] MEDS ORDERED: AL HYDROX/MG HYDROX/SIMETH 30 ML CUP PO PRN (13:00)
[2017-01-17] MEDS ORDERED: MEPERIDINE 25 MG INJ IV PRN (13:00)
[2017-01-17] MEDS ORDERED: EPHEDrine SULFATE 50 MG/5 ML SYG IV PRN (13:00)
[2017-01-17] MEDS ORDERED: PROCHLORPERAZINE 10 MG TAB PO PRN (13:00)
[2017-01-17] MEDS ORDERED: TRIMETHOBENZAMIDE 100 MG/ML VIAL IM PRN (13:00)
[2017-01-17] MEDS ORDERED: ACETAMINOPHEN 325 MG TAB PO PRN (13:00)
[2017-01-17] MEDS ORDERED: MIDAZOLAM 1 MG/ML 2 ML INJ IV PRN (13:00)
--- NOTE | 2017-01-17 14:38 | OPR ---
DATE OF OPERATION: 01/17/2017 PREOPERATIVE DIAGNOSES: Multilevel spinal stenosis (L3, L4, and L5). POSTOPERATIVE DIAGNOSES: Multilevel spinal stenosis (L3, L4, and L5). OPERATION PERFORMED: 1. Central decompressive laminectomy at L3. 2. Central decompressive laminectomy at L4. 3. Central decompressive laminectomy at L5. 4. Baxano transforaminal root decompression L5 on the left. 5. Medial facetectomy and foraminotomy, L3-4, L4-5, L5-S1 bilaterally. 6. Cosmetic wound closure (10 cm). 7. Lateral localized lumbar radiographs (2). 8. Intraoperative radiographs, intraoperative nerve monitoring (90 minutes). SURGEON: Frank Venegas MD MINE CAPTAIN: Dayanara Santoro. ANESTHESIA: General endotracheal. ANESTHESIOLOGIST: Addy Epperson MD ESTIMATED BLOOD LOSS: 80 mL, none replaced. DRAINS: Two medium Hemovac drains applied. COMPLICATIONS: None. PERTINENT HISTORY AND PHYSICAL: This is a 66-year-old male with persistent back and bilateral leg p ain, numbness and weakness which has been refractory to conservative management. He has undergone a number of diagnostic studies including an MRI of the lumbar spine, which demonstrated lumbar spinal stenosis at L3, L4, and L5. Treatment options were discussed with the patient, who elected to proc eed with surgery. OPERATIVE PROCEDURE: With the patient in supine position after satisfactory induction of general en dotracheal anesthesia by Dr. Addy Epperson, the patient was turned to the prone kneeling position onto [facility] frame. All pressure points were carefully padded. His back was prepped and draped in u sual sterile fashion. Athrombic pumps were applied to the legs below the knees to prevent venous st asis during and after procedure. An indwelling Mac catheter was also placed preoperatively to fac ilitate bladder drainage during and after the procedure. Two spinal needles were placed next to wha t was felt to be the L3 and L5 spinous processes, lateral roentgenogram was taken which confirmed an atomic localization. A 10 cm incision was carried out in the midline from L3 to sacrum through skin and subcutaneous tissue to deep fascia. Superficial retractors were placed and hemostasis secured with electrocautery. Throughout the procedure, copious amounts of antibacterial irrigating solution were used to periodically irrigate the wound. The fascia was incised in midline with a hot knife a nd a bilateral subperiosteal dissection carried out from L3 to the sacrum. Deep retractors were carmine gómez and deep hemostasis secured with electrocautery. A second intraoperative radiograph was taken w ith Beena clamps placed in what was felt to be on the spinous process of L3, L4, and L5. This was confirmed with second x-ray. A central decompressive laminectomy at L5, L4, and L3 was then carried out using a Pop right-angle bone rongeur, Leksell rongeur, Kerrison punches and curettes. The operating microscope was then moved into place. A medial facetectomy and foraminotomy was then acco mplished at L3-4, L4-5, and L5-S1 bilaterally. At this point, there was still some foraminal stenos is at L5 on the left and the Baxano instrumentation was brought onto the field. The Ipsi probe was placed into the left L5 foramen, and the guidewire passed in the usual fashion. The neuro probe was then inserted into the foramen to isolate the exiting L5 nerve root. With this having been accompl ished, the 7.5 mm Baxano rasp was inserted into the foramen and multiple reciprocations carried out to enlarge the posterior aspect of the foramen. The instrumentation was withdrawn, 25 mL of irrigat ing solution was used to irrigate the foramen and further hemostasis secured with bipolar electroca utery on a low setting. The anesthesiologist was asked to perform a Valsalva maneuver at 40 mmHg an d no spinal fluid leakage was noted. The L3-L4, L4-L5 and L5-S1 disc spaces were inspected and alth ough degenerated and slightly bulging, none were herniated or merited removal. The wound was then c losed in layers over 2 medium Hemovac drains, one below the fascia and one above the fascia using #1 Vicryl Stratafix sutures on the deep paralumbar musculature and deep fascia of the back, 2-0 Vicryl Stratafix sutures on the subcuticular tissue, and a 4-0 Vicryl subcuticular cosmetic closing suture on the skin. Dermabond and sterile compressive dressings were applied. Patient having tolerated p rocedure well, was then turned to supine position onto his bed and extubated by Dr. Addy Epperson. He w as transported to recovery room in satisfactory condition. At the conclusion of procedure, sponges and needle counts were all correct. NEED FOR WEB APPLICATIONS DEVELOPER: During this spinal surgical procedure, my sales assistant displays was used to retrac t and protect the spinal nerves and dural sac. My sales assistant displays also employed the suction catheters to e vacuate blood from the surgical field to improve visualization of the neural structures. The assista nt was medically necessary to facilitate the completion of the surgery in a safe and expeditious man ner. [facility] [place] regulations, as well as hospital bylaws, preclude the use of non-licensed [facility] care personnel such as operating room technicians, to perform these functions. Throughout the procedure, neural monitoring was carried out by [employer] including EMG, SSEP and MEP monitoring of the L3, L4, L5 and S1 nerve roots along with spinal cord p otentials. These were interpreted by a neurologist employed by [employer]. Dictated By: FRANK VENEGAS MD TM/NTS Conf#: [id number] DID#: [id number] CC: ROSSY BAUER MD;*End*
--- NOTE | 2017-01-17 16:33 | PN ---
Date/Time of Note Date/Time of Note DATE: 01/17/17 TIME: 16:29 Assessment/Plan VTE Prophylaxis VTE Prophylaxis Intervention: SCD's Lines/Catheters IV Catheter Type (from Nrsg): Saline Lock Urinary Cath still in place: No Subjective 24 Hr Interval Summary Free Text/Dictation 66 yr old man post lumbar laminectomy this am. he has a left foot drop, numbness and ambulation dependent cane use prior to surgery he has a history of eosinophillic pneumonia, which has resolved, but he remains on prednisone, qvar, advair and spiriva. post op alert, vs ok, moves all four, foot drop unchanged, no pain in legs melgar present lungs clear, hr ok, abd soft imp stable post surgery continue preop meds Additional Comments also prior history of cervical disc surgery with residual numbness hands Exam/Review of Systems Vital Signs Vitals Vital Signs Date Time Temp Pulse Resp B/P Pulse Ox O2 Delivery O2 Flow Rate FiO2 01/17/17 14:34 96 18 146/75 100 Nasal Cannula 01/17/17 14:00 2.0 01/17/17 12:52 97.9 Medications Medications Current Medications Cefazolin Sodium/ Dextrose 50 ml @ 100 mls/hr PREOP IVPB ; Start 01/17/17 at 06 :00; Stop 01/17/17 at 20:00 Lactated Ringer's 1,000 ml @ 0 mls/hr Q0M IV* ; Start 01/17/17 at 06:00; Stop 01/17/17 at 23:00 Lactated Ringer's 1,000 ml @ 0 mls/hr Q0M IV* ; Start 01/17/17 at 06:00; Stop 01/17/17 at 23:00 Dextrose/Sodium Chloride (D5-1/2ns) 1,000 ml @ 100 mls/hr Q10H IV ; Start 01/17 at 12:50 Acetaminophen/ Hydrocodone Bitart ([place] (5/325)) 1 tab Q4H PRN PO PAIN LEVEL 1 -5; Start 01/17/17 at 13:00 Acetaminophen/ Hydrocodone Bitart 2 tab 2 tab Q4H PRN PO PAIN LEVEL 6-10; Start 01/17/17 at 13:00 Cefazolin Sodium (Ancef 1 Gm/50 ml (Pmx)) 50 ml @ 100 mls/hr Q6 IVPB ; Start 01/17/17 at 18:00; Stop 01/18/17 at 12:29 Zolpidem Tartrate (Ambien) 5 mg HS PRN PO INSOMNIA; Start 01/17/17 at 13:00 Prochlorperazine (Compazine) 10 mg Q4H PRN PO NAUSEA AND/OR VOMITING; Start at 13:00 Trimethobenzamide HCl (Tigan) 200 mg Q4H PRN IM NAUSEA AND/OR VOMITING; Start 01/17/17 at 13:00 Ondansetron HCl (Zofran Inj) 4 mg Q6H PRN IV NAUSEA AND/OR VOMITING; Start 01/17/17 at 13:00 Al Hydrox/Mg Hydrox/Simethicone (Mag-Al Plus) 15 ml Q4H PRN PO CONSTIPATION; Start 01/17/17 at 13:00 Docusate Sodium (Colace) 100 mg BID PO ; Start 01/18/17 at 09:00 Acetaminophen (Tylenol Tab) 650 mg Q4H PRN PO TEMP GREATER THAN 101F OR GARCIA; Start 01/17/17 at 13:00 Ascorbic Acid (Vitamin C) 1,000 mg BID PO ; Start 01/18/17 at 09:00 Ferrous Sulfate (Ferrous Sulfate (Ec)) 325 mg TID PO ; Start 01/18/17 at 09:00 Ranitidine HCl (Zantac) 150 mg BID PO ; Start 01/17/17 at 21:00 Diazepam (Valium) 5 mg Q4H PRN PO MUSCLE SPASMS; Start 01/17/17 at 13:00 Diazepam (Valium) 5 mg Q4H PRN IM MUSCLE SPASMS; Start 01/17/17 at 13:00 Phenol (Cepastat Lozenge) 1 lozenge PRN PRN MT SORE THROAT; Start 01/17/17 at 13:00 Bethanechol Chloride (Urecholine) 25 mg PRN PRN PO UNABLE TO VOID; Start at 13:00 Diphenhydramine HCl (Benadryl) 50 mg Q6H PRN PO PRURITUS; Start 01/17/17 at 13: 00 Hydromorphone HCl (Dilaudid VARIETY PERFORMER) Q4PCA IV Last administered on 01/17/17t 13:34 ; Admin Dose 6 MG; Start 01/17/17 at 13:00 Naloxone HCl (Narcan) 0.2 mg Q2M PRN IV RR 8 BREATHS/MIN OR LESS; Start at 13:00 SERGE RAHMAN MD Jan 17, 2017 16:33
[2017-01-17] MEDS: CEFAZOLIN 1 GM/50 ML (PMX) 50 ML IVPB SCH (18:26)
[2017-01-17] MEDS ORDERED: NON-FORMULARY/PATIENT OWN MED (Salmeterol Xinaf-Fluticasone* (Advair HFA*) 2 INH) IH SCH (21:00)
[2017-01-17] MEDS: RANITIDINE 150 MG TAB PO SCH (21:51)
[2017-01-17] MEDS: CALCIUM CARBONATE 1.25 GM TAB PO SCH (21:51)
[2017-01-18 00:05] VITALS: BP 144/73; PULSE 74; RESP 18
[2017-01-18] MEDS: CEFAZOLIN 1 GM/50 ML (PMX) 50 ML IVPB SCH ×3 (00:09→12:41)
[2017-01-18 05:15] VITALS: BP 126/71; PULSE 78; RESP 18
[2017-01-18 05:19] LABS: HEMATOCRIT 40.1 % (42.0-52.0); HEMOGLOBIN 12.7 g/dl (14.0-18.0)
[2017-01-18 05:49] LABS: CALCIUM 8.1 mg/dl (8.4-10.2); CREATININE 0.61 mg/dl (0.61-1.24); POTASSIUM 3.2 mmol/L (3.5-5.1)
[2017-01-18] MEDS: predniSONE 10 MG TAB PO SCH (06:37)
--- NOTE | 2017-01-18 07:09 | PN ---
Date/Time of Note Date/Time of Note DATE: 01/18/17 TIME: 07:06 Assessment/Plan Lines/Catheters IV Catheter Type (from Nrsg): Saline Lock Mac in Place (from Nrsg): Yes Subjective 24 Hr Interval Summary Patient is postop day #1 following multilevel lumbar decompression. Vital signs are stable, he is afebrile. Hemoglobin this morning is 12.7. Hemovac output overnight was 60 cc, this will be left in place today. Neurovascular structures are intact distally. Pain is well controlled. Plan for today is to mobilize with physical therapy, remove Mac and LAN SUPPORT SPECIALIST, and advance diet as tolerated. Exam/Review of Systems Vital Signs Vitals Vital Signs Date Time Temp Pulse Resp B/P Pulse Ox O2 Delivery O2 Flow Rate FiO2 01/18/17 05:15 98.6 78 18 126/71 100 Nasal Cannula 2.0 Intake and Output 01/17/17 01/17/17 01/18/17 15:00 23:00 07:00 Intake Total 3140 ml 450 ml 1400 ml Output Total 600 ml 880 ml 2060 ml Balance 2540 ml -430 ml -660 ml Results Result Diagram: 01/18/17 0450 01/18/17 0451 YVONNE ADAMS Jan 18, 2017 07:09
[2017-01-18 07:45] VITALS: BP 130/65; RESP 18
[2017-01-18] MEDS ORDERED: BETHANECHOL 25 MG TAB PO PRN (08:00)
[2017-01-18] MEDS: DEXTROSE 5%-0.45% NACL 1,000 ML IV SCH ×2 (08:50→18:50)
[2017-01-18] MEDS: HYDROCODONE/APAP (5/325) TAB PO PRN (08:59)
[2017-01-18] MEDS: DOCUSATE SODIUM 100 MG CAP PO SCH ×2 (08:59→20:12)
[2017-01-18] MEDS: CALCIUM CARBONATE 1.25 GM TAB PO SCH ×3 (08:59→20:12)
[2017-01-18] MEDS: RANITIDINE 150 MG TAB PO SCH ×2 (09:00→20:12)
[2017-01-18] MEDS: FERROUS SULFATE (EC) 325 MG TAB PO SCH ×3 (09:00→20:12)
[2017-01-18] MEDS: TIOTROPIUM 18 MCG CAPSULE INHA DEV INH SCH (09:00)
[2017-01-18] MEDS: ASCORBIC ACID 500 MG TAB PO SCH ×2 (09:00→20:12)
[2017-01-18 11:31] LABS: ADD UMIC YES; UR ASCORBIC ACID NEGATIVE (NEGATIVE); UR BACTERIA FEW /HPF (NONE SEEN); UR BILIRUBIN (Dip) NEGATIVE (NEGATIVE); UR BLOOD (Dip) 2+ mg/dL (NEGATIVE); UR CLARITY CLEAR (CLEAR); UR COLOR YELLOW (YELLOW); UR GLUCOSE (Dip) NEGATIVE (NEGATIVE); UR KETONES (Dip) NEGATIVE (NEGATIVE); UR LEUKOCYTE ESTERASE (Dip) NEGATIVE Leu/ul (NEGATIVE); UR MUCUS FEW /HPF (NONE SEEN); UR NITRITE (Dip) NEGATIVE (NEGATIVE); UR RBC 61 /HPF (0-5); UR SPECIFIC GRAVITY (Dip) 1.012 (1.003-1.030); UR TOTAL PROTEIN (Dip) NEGATIVE (NEGATIVE); UR UROBILINOGEN (Dip) NEGATIVE (NEGATIVE)
[2017-01-18 15:00] VITALS: BP 116/61; RESP 18
[2017-01-18] MEDS ORDERED: POTASSIUM CHLORIDE (SR) 20 MEQ TAB PO STA (17:10)
--- NOTE | 2017-01-18 17:16 | CONS ---
Date/Time of Note Date/Time of Note DATE: 01/18/17 TIME: 17:13 Assessment/Plan Assessment/Plan Chief Complaint/Hosp Course S/P Lumbar Laminectomy-Doing well post op without any aggravation of underlying medical diagnoses, or post mop complications. Continue treatment Problems: Consultation Date/Type/Reason Admit Date/Time Jan 17, 2017 at 07:03 Initial Consult Date 01-17-2017 Type of Consultation: Internal Medicine Reason for Consultation post op care- Referring Provider: RACHAEL DUNCAN MD 24 HR Interval Summary Free Text/Dictation c/o back pain at surgical site Constitutional: no complaints Detailed Summary Respiratory: no complaints Cardiovascular: no complaints Gastrointestinal: no complaints Genitourinary: no complaints Exam/Review of Systems Vital Signs Vitals Vital Signs Date Time Temp Pulse Resp B/P Pulse Ox O2 Delivery O2 Flow Rate FiO2 01/18/17 15:00 98.1 80 18 116/61 97 01/18/17 05:15 Nasal Cannula 2.0 Intake and Output 01/17/17 01/17/17 01/18/17 15:00 23:00 07:00 Intake Total 3140 ml 450 ml 1400 ml Output Total 600 ml 880 ml 2060 ml Balance 2540 ml -430 ml -660 ml Exam Constitutional: alert, oriented Neck: non-tender, supple Respiratory: clear to auscultation, normal air movement Cardiovascular: nl pulses, regular rate and rhythm Gastrointestinal: nl liver, spleen, non-tender, soft Results Result Diagram: 01/18/17 0450 01/18/17 0451 Results 24 hrs Laboratory Tests Test 01/18/17 04:50 01/18/17 04:51 01/18/17 09:35 Hemoglobin 12.7 L Hematocrit 40.1 L Sodium Level 140 Potassium Level 3.2 L Chloride Level 105 Carbon Dioxide Level 31 Anion Gap 7 L Blood Urea Nitrogen 7 Creatinine 0.61 Glucose Level 108 Calcium Level 8.1 L Urine Color YELLOW Urine Clarity CLEAR Urine pH 5.0 Urine Specific [place] 1.012 Urine Ketones NEGATIVE Urine Nitrite NEGATIVE Urine Bilirubin NEGATIVE Urine Urobilinogen NEGATIVE Urine Leukocyte Esterase NEGATIVE Urine Microscopic RBC 61 H Urine Microscopic WBC 2 Urine Bacteria FEW A Urine Mucus FEW A Urine Hemoglobin 2+ H Urine Glucose NEGATIVE Urine Total Protein NEGATIVE Medications Medications Current Medications Dextrose/Sodium Chloride (D5-1/2ns) 1,000 ml @ 100 mls/hr Q10H IV Last administered on 01/17/17 21:55; Admin Dose 100 MLS/HR; Start 01/17/17 at 12:50 Acetaminophen/ Hydrocodone Bitart ([place] (5/325)) 1 tab Q4H PRN PO PAIN LEVEL 1 -5 Last administered on 01/18/17 08:59; Admin Dose 1 TAB; Start 01/17/17 at 13 :00 Acetaminophen/ Hydrocodone Bitart ([place] (5/325)) 2 tab Q4H PRN PO PAIN LEVEL 6 -10; Start 01/17/17 at 13:00 Zolpidem Tartrate (Ambien) 5 mg HS PRN PO INSOMNIA; Start 01/17/17 at 13:00 Prochlorperazine (Compazine) 10 mg Q4H PRN PO NAUSEA AND/OR VOMITING; Start at 13:00 Trimethobenzamide HCl (Tigan) 200 mg Q4H PRN IM NAUSEA AND/OR VOMITING; Start 01/17/17 at 13:00 Ondansetron HCl (Zofran Inj) 4 mg Q6H PRN IV NAUSEA AND/OR VOMITING; Start 01/17/17 at 13:00 Al Hydrox/Mg Hydrox/Simethicone (Mag-Al Plus) 15 ml Q4H PRN PO CONSTIPATION; Start 01/17/17 at 13:00 Docusate Sodium (Colace) 100 mg BID PO Last administered on 01/18/17 08:59; Admin Dose 100 MG; Start 01/18/17 at 09:00 Acetaminophen (Tylenol Tab) 650 mg Q4H PRN PO TEMP GREATER THAN 101F OR GARCIA; Start 01/17/17 at 13:00 Ascorbic Acid (Vitamin C) 1,000 mg BID PO Last administered on 01/18/17 09:00 ; Admin Dose 1,000 MG; Start 01/18/17 at 09:00 Ferrous Sulfate (Ferrous Sulfate (Ec)) 325 mg TID PO Last administered on 01/18 12:42; Admin Dose 325 MG; Start 01/18/17 at 09:00 Ranitidine HCl (Zantac) 150 mg BID PO Last administered on 01/18/17 09:00; Admin Dose 150 MG; Start 01/17/17 at 21:00 Diazepam (Valium) 5 mg Q4H PRN PO MUSCLE SPASMS; Start 01/17/17 at 13:00 Diazepam (Valium) 5 mg Q4H PRN IM MUSCLE SPASMS; Start 01/17/17 at 13:00 Phenol (Cepastat Lozenge) 1 lozenge PRN PRN MT SORE THROAT Last administered on 01/18/17 06:12; Admin Dose 1 LOZENGE; Start 01/17/17 at 13:00 Bethanechol Chloride (Urecholine) 25 mg PRN PRN PO UNABLE TO VOID; Start at 13:00 Diphenhydramine HCl (Benadryl) 50 mg Q6H PRN PO PRURITUS; Start 01/17/17 at 13: 00 Hydromorphone HCl (Dilaudid CLIP LOADING MACHINE FEEDER) Q4PCA IV Last administered on 01/17/17 13:34 ; Admin Dose 6 MG; Start 01/17/17 at 13:00 Naloxone HCl (Narcan) 0.2 mg Q2M PRN IV RR 8 BREATHS/MIN OR LESS; Start at 13:00 Calcium Carbonate (Oyster Shell Calcium) 0.5 gm TID PO Last administered on 12:42; Admin Dose 0.5 GM; Start 01/17/17 at 21:00 Tiotropium [place] (Spiriva) 1 inh DAILY INH Last administered on 01/18/17 09 :00; Admin Dose 1 INH; Start 01/18/17 at 09:00 Miscellaneous Information 2 inh BID IH ; Start 01/17/17 at 21:00; Status UNV Bethanechol Chloride (Urecholine) 25 mg PRN PRN PO UNABLE TO VOID; Start 01/18 at 08:00 ROSSY BAUER MD Jan 18, 2017 17:16
[2017-01-18] MEDS ORDERED: POTASSIUM CHLORIDE 250 ML IVPB ONE (17:30)
[2017-01-18 19:25] VITALS: BP 124/61; RESP 18
[2017-01-19 00:25] VITALS: BP 136/63; PULSE 77; RESP 20
[2017-01-19 05:30] VITALS: BP 122/57; PULSE 76; RESP 20
[2017-01-19] MEDS: predniSONE 10 MG TAB PO SCH ×2 (05:59→08:28)
--- NOTE | 2017-01-19 07:07 | PN ---
Date/Time of Note Date/Time of Note DATE: 01/19/17 TIME: 07:05 Assessment/Plan Lines/Catheters IV Catheter Type (from Nrs): Peripheral IV Mac in Place (from Nrs): No Subjective 24 Hr Interval Summary Patient is postop day #2 following a multilevel decompressive laminectomy. He is afebrile and resting comfortably. He is cleared for discharge by physical therapy. Neurovascular structures are intact distally. He was given strict discharge precautions and instructions. Follow-up arrangements have been arranged. Exam/Review of Systems Vital Signs Vitals Vital Signs Date Time Temp Pulse Resp B/P Pulse Ox O2 Delivery O2 Flow Rate FiO2 01/19/17 05:30 99.3 76 20 122/57 97 01/18/17 05:15 Nasal Cannula 2.0 Intake and Output 01/18/17 01/18/17 01/19/17 15:00 23:00 07:00 Intake Total 50 ml 800 ml 650 ml Output Total 1300 ml 900 ml Balance 50 ml -500 ml -250 ml Results Result Diagram: 01/18/17 0450 01/18/17 0451 RACHAEL DUNCAN MD Jan 19, 2017 07:07
[2017-01-19 07:50] VITALS: BP 118/59; RESP 20
[2017-01-19] MEDS: CALCIUM CARBONATE 1.25 GM TAB PO SCH (08:27)
[2017-01-19] MEDS: TIOTROPIUM 18 MCG CAPSULE INHA DEV INH SCH (08:27)
[2017-01-19] MEDS: FERROUS SULFATE (EC) 325 MG TAB PO SCH (08:27)
[2017-01-19] MEDS: RANITIDINE 150 MG TAB PO SCH (08:28)
[2017-01-19] MEDS: ASCORBIC ACID 500 MG TAB PO SCH (08:28)
[2017-01-19] MEDS: DOCUSATE SODIUM 100 MG CAP PO SCH (08:28)
[2017-01-19] MEDS ORDERED: POTASSIUM CHLORIDE (SR) 20 MEQ TAB PO STA (08:31)
--- NOTE | 2017-01-19 08:35 | PN ---
Date/Time of Note Date/Time of Note DATE: 01/19/17 TIME: 08:33 Assessment/Plan VTE Prophylaxis VTE Prophylaxis Intervention: ambulation Lines/Catheters IV Catheter Type (from Nrsg): Peripheral IV Urinary Cath still in place: No Subjective 24 Hr Interval Summary Free Text/Dictation doing well post op. has been up with p.t. and is cleared for discharge. potassium low this am, one po will be given and i will excribe rx to his pharmacy with outpt follow up by usual md alert, clear lungs, vs ok ok for discharge thank you Exam/Review of Systems Vital Signs Vitals Vital Signs Date Time Temp Pulse Resp B/P Pulse Ox O2 Delivery O2 Flow Rate FiO2 01/19/17 07:50 97.7 82 20 118/59 95 01/18/17 05:15 Nasal Cannula 2.0 Intake and Output 01/18/17 01/18/17 01/19/17 15:00 23:00 07:00 Intake Total 50 ml 800 ml 650 ml Output Total 1300 ml 900 ml Balance 50 ml -500 ml -250 ml Results Result Diagram: 01/18/17 0450 01/18/17 0451 Results 24 hrs Laboratory Tests Test 01/18/17 09:35 Urine Color YELLOW Urine Clarity CLEAR Urine pH 5.0 Urine Specific [place] 1.012 Urine Ketones NEGATIVE Urine Nitrite NEGATIVE Urine Bilirubin NEGATIVE Urine Urobilinogen NEGATIVE Urine Leukocyte Esterase NEGATIVE Urine Microscopic RBC 61 H Urine Microscopic WBC 2 Urine Bacteria FEW A Urine Mucus FEW A Urine Hemoglobin 2+ H Urine Glucose NEGATIVE Urine Total Protein NEGATIVE Medications Medications Current Medications Acetaminophen/ Hydrocodone Bitart ([place] (5/325)) 1 tab Q4H PRN PO PAIN LEVEL 1 -5 Last administered on 01/18/17t 08:59; Admin Dose 1 TAB; Start 01/17/17 at 13 :00 Acetaminophen/ Hydrocodone Bitart ([place] (5/325)) 2 tab Q4H PRN PO PAIN LEVEL 6 -10; Start 01/17/17 at 13:00 Zolpidem Tartrate (Ambien) 5 mg HS PRN PO INSOMNIA; Start 01/17/17 at 13:00 Prochlorperazine (Compazine) 10 mg Q4H PRN PO NAUSEA AND/OR VOMITING; Start at 13:00 Trimethobenzamide HCl (Tigan) 200 mg Q4H PRN IM NAUSEA AND/OR VOMITING; Start 01/17/17 at 13:00 Ondansetron HCl (Zofran Inj) 4 mg Q6H PRN IV NAUSEA AND/OR VOMITING; Start 01/17/17 at 13:00 Al Hydrox/Mg Hydrox/Simethicone (Mag-Al Plus) 15 ml Q4H PRN PO CONSTIPATION Last administered on 01/19/17 06:00; Admin Dose 15 ML; Start 01/17/17 at 13:00 Docusate Sodium (Colace) 100 mg BID PO Last administered on 01/19/17 08:28; Admin Dose 100 MG; Start 01/18/17 at 09:00 Acetaminophen (Tylenol Tab) 650 mg Q4H PRN PO TEMP GREATER THAN 101F OR GARCIA; Start 01/17/17 at 13:00 Ascorbic Acid (Vitamin C) 1,000 mg BID PO Last administered on 01/19/17 08:28 ; Admin Dose 1,000 MG; Start 01/18/17 at 09:00 Ferrous Sulfate (Ferrous Sulfate (Ec)) 325 mg TID PO Last administered on 01/19 08:27; Admin Dose 325 MG; Start 01/18/17 at 09:00 Ranitidine HCl (Zantac) 150 mg BID PO Last administered on 01/19/17 08:28; Admin Dose 150 MG; Start 01/17/17 at 21:00 Diazepam (Valium) 5 mg Q4H PRN PO MUSCLE SPASMS; Start 01/17/17 at 13:00 Diazepam (Valium) 5 mg Q4H PRN IM MUSCLE SPASMS; Start 01/17/17 at 13:00 Phenol (Cepastat Lozenge) 1 lozenge PRN PRN MT SORE THROAT Last administered on 01/18/17 06:12; Admin Dose 1 LOZENGE; Start 01/17/17 at 13:00 Bethanechol Chloride (Urecholine) 25 mg PRN PRN PO UNABLE TO VOID; Start at 13:00 Diphenhydramine HCl (Benadryl) 50 mg Q6H PRN PO PRURITUS; Start 01/17/17 at 13: 00 Hydromorphone HCl (Dilaudid INSURANCE LOSS CONTROL SURVEYOR) Q4PCA IV Last administered on 01/17/17 13:34 ; Admin Dose 6 MG; Start 01/17/17 at 13:00 Naloxone HCl (Narcan) 0.2 mg Q2M PRN IV RR 8 BREATHS/MIN OR LESS; Start at 13:00 Calcium Carbonate (Oyster Shell Calcium) 0.5 gm TID PO Last administered on 08:27; Admin Dose 0.5 GM; Start 01/17/17 at 21:00 Tiotropium [place] (Spiriva) 1 inh DAILY INH Last administered on 01/19/17 08 :27; Admin Dose 1 INH; Start 01/18/17 at 09:00 Miscellaneous Information 2 inh BID IH ; Start 01/17/17 at 21:00; Status UNV Bethanechol Chloride (Urecholine) 25 mg PRN PRN PO UNABLE TO VOID; Start 01/18 at 08:00 SERGE RAHMAN MD Jan 19, 2017 08:35
[2017-01-19] MEDS: HYDROCODONE/APAP (5/325) TAB PO PRN (09:40)
== END 2017-01-19 11:10 | disposition home or self-care (01) | DRG 517 ==
LOC: REC 07:03 → MS1 14:40
PROVIDERS: ADMIT Orthopaedic Surgery; ATTEND Orthopaedic Surgery
PROC: 4A11X4G Monitoring of Peripheral Nervous Electrical Activity, Intraoperative, External Approach (ICD-10-PCS; 2017-01-17)
PROC: 01NB0ZZ Release Lumbar Nerve, Open Approach (ICD-10-PCS; principal; 2017-01-17 10:00)
DX: M48.061 Spinal stenosis, lumbar region without neurogenic claudication (principal); E87.6 Hypokalemia; M21.372 Foot drop, left foot; Z98.1 Arthrodesis status; Z87.09 Personal history of other diseases of the respiratory system; Z79.52 Long term (current) use of systemic steroids
CPT/HCPCS: 72020; 80048; 81001; 85014; 85018; 86850; 86900; 86901; 86920; 87086; 88304; 88311; 97116; 97162; 97530; J0690; J1170; J1720; J2175; J2405; J2710; J3480; J7042; J7512; J7999

== ENCOUNTER → 2017-03-25 | Emergency (ER) | payer MEDICARE, OTHER ==
[~2017-03-25] VITALS: Ht 177.8 cm; Wt 65.0 kg
[~2017-03-25] MED LIST changes: -CEFAZOLIN 2 GM/50 ML (PMX) 50 ML IVPB SCH; +CEPH-443 PO; -LACTATED RINGER'S 1,000 ML IV* SCH; +MED4DP PO; +SULF1TAB31 PO
[2017-03-25 10:05] VITALS: Ht 177.8 cm; Wt 65.0 kg
--- NOTE | 2017-03-25 10:29 | ERD ---
ER Documentation Chief Complaint Chief Complaint sent from MD LOW 66y/o male s/p lumbar decompression and laminectomy 01/17/2017 presents to the ED c/o 2 day h/o pruritus, mild pain, redness and swelling of the left leg. No trauma or injury but wears a brace for foot drop. Denies chest pain, palpitations or shortness of breath. No relieving or exacerbating factors. No fevers or chills. ROS All systems reviewed and are negative except as per history of present illness. Medications Home Meds Active Scripts Cephalexin* (Keflex*) 500 Mg Capsule, 500 MG PO QID for 10 Days, CAP Prov:JANINE VEGA MD 03/25/17 Methylprednisolone* (Medrol* DOSE PACK) 4 Mg/Dose-Pack Tab.ds.pk, 4 MG PO . DIRECTED for 7 Days, #1 PACKET Prov:JANINE VEGA MD 03/25/17 Sulfamethoxazole/Trimethoprim* (Bactrim Ds* Tablet) 1 Each Tablet, 1 TAB PO BID , #20 TAB Prov:JANINE VEGA MD 03/25/17 Reported Medications Calcium Carbonate (Oysco-500) 500 Mg Tablet, 500 MG PO TID, TAB 01/13/17 [Qvar] No Conflict Check, 2 PUFFS BID 01/13/17 Tiotropium [place]* (Spiriva*) 18 Mcg Cap.w.dev, 1 CAP INHALATION DAILY, #30 CAP 01/13/17 Salmeterol Xinaf-Fluticasone* (Advair HFA*) 230/12 Aerosol Inhaler, 2 INH IH BID , #1 INHALER 01/13/17 Prednisone* (Prednisone*) 10 Mg Tab, 10 MG PO, TAB 01/13/17 Allergies Allergies: Coded Allergies: succinylcholine (Verified Allergy, Severe, RIGID JAW, 01/17/17) PMhx/Soc History of Surgery: Yes (CERVICAL FUSION,RT INGUINAL HERNIA REPAIR) Anesthesia Reaction: No Hx Neurological Disorder: No Hx Respiratory Disorders: Yes (EOSINOPHILIC PNEUMONIA) Hx Cardiac Disorders: No Hx Psychiatric Problems: No Hx Miscellaneous Medical Probl: Yes (See EMR for detail. ) Hx Alcohol Use: Yes (SOCIALLY) Hx Substance Use: No Hx Tobacco Use: Yes (QUIT 1989, SMOKED 20 YRS ) Physical Exam Vitals Vital Signs Date Time Temp Pulse Resp B/P Pulse Ox O2 Delivery O2 Flow Rate FiO2 03/25/17 10:05 99.4 89 20 134/68 95 Physical Exam Const: Alert, NAD Head: Atraumatic Eyes: Normal Conjunctiva ENT: Normal External Ears, Nose and Mouth. Neck: Full range of motion. Nontender Resp: Clear to auscultation bilaterally Cardio: Regular rate and rhythm, no murmurs Abd: Soft, non tender, non distended. Normal bowel sounds Skin: No petechiae or rashes Back: No midline or flank tenderness Ext: Left Leg: mild swelling with erythema extending form below the knee to above the ankle. No calf tenderness. Mild calor. No ankle of knee swelling or tenderness. No subcutaneous crepitus. Compartments are soft. No pain with passive ankle flexion or extension. No abrasions or lacerations. No lymphadenopathy or groin tenderness. Pulses 4+. Neur: Awake and alert Psych: Normal Mood and Affect Result Diagram: 03/25/17 1130 03/25/17 1130 Results 24 hrs Laboratory Tests Test 03/25/17 11:30 White Blood Count 10.810^3/ul Red Blood Count 4.9910^6/ul Hemoglobin 15.5g/dl Hematocrit 46.5% Mean Corpuscular Volume 93.2fl Mean Corpuscular Hemoglobin 31.1pg Mean Corpuscular Hemoglobin Concent 33.3g/dl Red Cell Distribution Width 12.8% Platelet Count 49120^3/UL Mean Platelet Volume 11.0fl Neutrophils % 48.9% Lymphocytes % 12.0% Monocytes % 4.3% Eosinophils % 33.9% Basophils % 0.4% Nucleated Red Blood Cells % 0.0/100WBC Neutrophils # 5.310^3/ul Lymphocytes # 1.310^3/ul Monocytes # 0.510^3/ul Eosinophils # 3.710^3/ul Basophils # 0.010^3/ul Nucleated Red Blood Cells # 0.010^3/ul Prothrombin Time 13.6Sec Prothrombin Time Ratio 1.1 INR International Normalized Ratio 1.03 Activated Partial Thromboplast Time 29.7Sec Sodium Level 140mmol/L Potassium Level 4.3mmol/L Chloride Level 101mmol/L Carbon Dioxide Level 29mmol/L Anion Gap 14 Blood Urea Nitrogen 9mg/dl Creatinine 0.85mg/dl Glucose Level 106mg/dl Calcium Level 9.1mg/dl LABS: Unremarkable. IMAGING: PROCEDURE: Ultrasound of the left lower extremity venous system. CLINICAL INDICATION: Left leg pain and swelling, deep venous thrombosis TECHNIQUE: [place] scale with and without compression, color doppler, spectral doppler of the venous system of the left lower extremity was performed. Venous augmentation maneuvers were utilized. COMPARISON: No prior studies are available for comparison. FINDINGS: Common femoral vein: Patent. Femoral vein: Patent. Popliteal vein: Patent. Calf veins: Patent. No soft tissue abnormalities are identified. IMPRESSION: No evidence of a deep vein thrombosis within the left lower extremity. RPTAT: AADD .Merritt Whiting MD, MD Date Time Electronically viewed and signed by .Merritt Whiting MD, MD on 03/25/2017 11:23 .B/ Procedures/MDM DOCUMENTS REVIEWED: ED nurse, prior ED, prior records MEDICAL DECISION MAKINy/o male s/p lumbar decompression and laminectomy presents to the ED c/o 2 day h/o pruritus, mild pain, redness and swelling of the left leg. Venous doppler negative for DVT. Presentation consistent with cellulitis vs allergic reaction/contact dermatitis. No signs of necrotizing fasciitis or compartment syndrome. No evidence of arterial insufficiency or ischemia. Stable for discharge of precautionary instructions and outpatient follow-up as counseled. CONSULTATIONS: Dr Olivares. Recommends discharge with medrol dose pack and antibiotics. Counseled patient and family regarding diagnostic workup, diagnosis and need for followup. Understands to return to ED if symptoms recur, worsen or any other concerns. Departure Diagnosis: Primary Impression: Swelling of right lower extremity Additional Impressions: Cellulitis Site of cellulitis: extremity Site of cellulitis of extremity: lower extremity Laterality: left Qualified Code: L03.116 - Cellulitis of left lower extremity Contact dermatitis Contact dermatitis type: unspecified Contact dermatitis trigger: unspecified trigger Qualified Code: L25.9 - Contact dermatitis, unspecified contact dermatitis type, unspecified trigger S/P laminectomy Condition: Stable JANINE VEGA MD Mar 25, 2017 10:29
--- NOTE | 2017-03-25 11:24 | RADRPT ---
PROCEDURE: Ultrasound of the left lower extremity venous system. CLINICAL INDICATION: Left leg pain and swelling, deep venous thrombosis TECHNIQUE: [place] scale with and without compression, color doppler, spectral doppler of the venous system of the left lower extremity was performed. Venous augmentation maneuvers were utilized. COMPARISON: No prior studies are available for comparison. FINDINGS: Common femoral vein: Patent. Femoral vein: Patent. Popliteal vein: Patent. Calf veins: Patent. No soft tissue abnormalities are identified. IMPRESSION: No evidence of a deep vein thrombosis within the left lower extremity. RPTAT: AADD .Merritt Whiting MD, MD Date Time Electronically viewed and signed by .Merritt Whiting MD, on 03/25/2017 11:23 .B/
[2017-03-25 11:58] LABS: ABNORMAL IP MESSAGE 1; BASOPHILS % 0.4 % (0.0-2.0); EOSINOPHILS # 3.7 10^3/ul (0.0-0.5); EOSINOPHILS % 33.9 % (0.0-7.0); HEMATOCRIT 46.5 % (42.0-52.0); HEMOGLOBIN 15.5 g/dl (14.0-18.0); LYMPHOCYTES # 1.3 10^3/ul (0.8-2.9); MEAN CORPUSCULAR HEMOGLOBIN 31.1 pg (29.0-33.0); MEAN CORPUSCULAR HGB CONC 33.3 g/dl (32.0-37.0); MEAN CORPUSCULAR VOLUME 93.2 fl (82.0-101.0); MONOCYTE # 0.5 10^3/ul (0.3-0.9); MONOCYTES % 4.3 % (0.0-11.0); NEUTROPHIL # 5.3 10^3/ul (1.6-7.5); NEUTROPHILS % 48.9 % (39.0-77.0); PLATELET COUNT 351 10^3/UL (140-415); POSITIVE DIFF @See below; RED BLOOD COUNT 4.99 10^6/ul (4.70-6.10); RED CELL DISTRIBUTION WIDTH 12.8 % (11.5-14.5); WHITE BLOOD COUNT 10.8 10^3/ul (4.8-10.8)
[2017-03-25 12:16] LABS: CALCIUM 9.1 mg/dl (8.4-10.2); CREATININE 0.85 mg/dl (0.61-1.24); POTASSIUM 4.3 mmol/L (3.5-5.1)
[2017-03-25 12:17] LABS: INR 1.03; PROTIME 13.6 Sec (11.9-14.9); PT RATIO 1.1
[2017-03-25 12:18] LABS: PARTIAL THROMBOPLASTIN TIME 29.7 Sec (25.0-35.0)
== END | disposition home or self-care (01) ==
LOC: E/R 09:58
DX: R22.41 Localized swelling, mass and lump, right lower limb (principal); L03.116 Cellulitis of left lower limb; L25.9 Unspecified contact dermatitis, unspecified cause; Z79.01 Long term (current) use of anticoagulants; Z87.891 Personal history of nicotine dependence; Z98.890 Other specified postprocedural states
CPT/HCPCS: 80048; 85025; 85610; 85730; 93971; 99284

== ENCOUNTER 2017-06-03 23:29 | Inpatient (IN) | END 2017-06-05 15:13 | disposition home or self-care (01) | DRG 392 ==

== ENCOUNTER 2017-06-07 10:22 | Emergency (ER) | END 2017-06-07 13:46 | disposition home or self-care (01) ==

== ENCOUNTER 2017-06-19 01:08 | Inpatient (IN) | END 2017-06-22 21:40 | disposition home or self-care (01) | DRG 418 ==

== ENCOUNTER 2017-07-18 10:04 | Emergency (ER) | END 2017-07-18 13:36 | disposition home or self-care (01) ==